=== PATIENT | male | born 1975 | race Caucasian/White ===

== ENCOUNTER 2020-04-09 07:16 | Emergency (ER) | payer BC ==
[~2020-04-09] VITALS: Ht 188 cm; Wt 81.7 kg
[~2020-04-09 07:16] MED LIST: HYDROXYZINE HCL50 MG; MAXALT; MEDROL DOSPAK21 TA1 PO; MEDROLDOSEPACK PO; UNICOMPLEX M TA1 TA1 PO; ZANTAC 150MG T150 MG PO
[2020-04-09 09:34] VITALS: BP 122/84
== END 2020-04-09 09:34 | disposition home or self-care (01) ==
LOC: M.ERS 07:16
DX: G43.909 Migraine, unspecified, not intractable, without status migrainosus (principal); R11.2 Nausea with vomiting, unspecified; Z88.5 Allergy status to narcotic agent